=== PATIENT | female | born 1985 | race Caucasian/White ===

== ENCOUNTER 2016-11-22 12:11 | Emergency (ER) | payer BC ==
[2016-11-22 12:22] VITALS: RESP 16; TEMP 98.5
[2016-11-22] MEDS ORDERED: HYDROmorphone 1 MG/ML 1 ML SYRINGE IVP STA (12:31)
[2016-11-22] MEDS ORDERED: ONDANSETRON 4 MG/2 ML VIAL IVP STA ×2 (12:31→15:19)
[2016-11-22] MEDS ORDERED: SODIUM CHLORIDE 0.9% 1,000 ML IV STA ×2 (12:31)
--- NOTE | 2016-11-22 12:36 | ED ---
General Adult HPI - General Chief complaint: Abdominal Pain Stated complaint: appendicitis-sent by [employer] Time Seen by Provider: 11/22/16 12:25 Source: patient, RN notes reviewed Mode of arrival: ambulatory Limitations: no limitations - History of Present Illness Initial comments: 31-year-old female who presents emergency room today with a chief complaint of right-sided abdominal pain 3 days. Patient does admit to pain on the right side. She does admit that she's had kidney stone in the past. She states this feels somewhat similar but more intense. Patient states that she did go to urgent care and they saw evidence for blood in her urine and possible urinary tract infection. She states that she was advised coming here to the emergency room for further evaluation. Admits to the flank pain on the right side. She also admits to episodes of nausea vomiting. Denies any other complaints currently. Patient denies any recent fever, chills, shortness of breath, chest pain, numbness or tingling, dysuria or hematuria, constipation or diarrhea, headaches or visual changes, or any other complaints. - Related Data Home Medications Medication Instructions Recorded Confirmed Cetirizine HCl [Zyrtec] 10 mg PO DAILY 11/22/16 11/22/16 Propranolol [Inderal] 20 mg PO BID 11/22/16 11/22/16 Previous Rx's Medication Instructions Recorded Hydrocodone/Acetaminophen [[place] 1 each PO Q6HR PRN #20 tab 11/22/16 5-325] Ibuprofen [Motrin] 600 mg PO Q6HR PRN #40 day 11/22/16 Ondansetron Odt [Zofran ODT] 4 mg PO Q8HR PRN #20 tab 11/22/16 Tamsulosin [Flomax] 0.4 mg PO DAILY #10 cap 11/22/16 Allergies Allergy/AdvReac Type Severity Reaction Status Date / Time No Known Allergies Allergy Verified 11/22/16 12:35 Review of Systems ROS Statement: Those systems with pertinent positive or pertinent negative responses have been documented in the HPI. ROS Other: All systems not noted in ROS Statement are negative. Past Medical History Past Medical History: No Reported History History of Any Multi-Drug Resistant Organisms: None Reported Past Surgical History: Orthopedic Surgery Additional Past Surgical History / Comment(s): DandC, bilateral knees Past Psychological History: No Psychological Hx Reported Smoking Status: Former smoker Past Alcohol Use History: Rare Past Drug Use History: None Reported General Exam - General Exam Comments Initial Comments: General: The patient is awake and alert, in no distress, and does not appear acutely ill. Eye: Pupils are equal, round and reactive to light, extra-ocular movements are intact. No nystagmus. There is normal conjunctiva bilaterally. No signs of icterus. Ears, nose, mouth and throat: There are moist mucous membranes and no oral lesions. Neck: The neck is supple, there is no tenderness or JVD. Cardiovascular: There is a regular rate and rhythm. No murmur, rub or gallop is appreciated. Respiratory: Lungs are clear to auscultation, respirations are non-labored, breath sounds are equal. No wheezes, stridor, rales, or rhonchi. Gastrointestinal: Patient's abdomen. Normal bowel sounds. Abdomen soft on palpation. Patient does have tenderness right side of the abdomen right flank. No CVA tenderness. No guarding. No rebound tenderness. Musculoskeletal: Normal ROM, no tenderness. Strength 5/5. Sensation intact. Pulses equal bilaterally 2+. Neurological: A&O x 3. CN II-XII intact, There are no obvious motor or sensory deficits. Coordination appears grossly intact. Speech is normal. Skin: Skin is warm and dry and no rashes or lesions are noted. Psychiatric: Cooperative, appropriate mood & affect, normal judgment. Limitations: no limitations Course Vital Signs 11/22/16 12:18 Temperature 98.5 F Pulse Rate 73 Respiratory 16 Rate Blood Pressure 141/80 O2 Sat by Pulse 98 Oximetry Medical Decision Making - Medical Decision Making Reexamined at this time shows no signs of distress. She states feeling better after medications here the emergency room. Patient's labs been reviewed does show large amount of blood in her urinalysis. No sign of infection. Patient's CT does show evidence for right-sided kidney stone measuring 5.6 mm. There is evidence for Mucosal thickening involving the rectosigmoid junction. Was discussed with patient about following up PCP for further evaluation. So, I advised patient follow-up with urologist. Advised patient will return if any symptoms increase or worsen or for any concerns. - Lab Data Result diagrams: 11/22/16 13:05 11/22/16 13:05 Lab Results 11/22/16 11/22/16 11/22/16 Range/Units 13:05 13:05 13:05 WBC 10.1 (3.8-10.6) k/uL RBC 4.78 (3.80-5.40) m/uL Hgb 14.3 (11.4-16.0) gm/dL Hct 40.1 (34.0-46.0) % MCV 83.9 (80.0-100.0) fL MCH 29.8 (25.0-35.0) pg MCHC 35.5 (31.0-37.0) g/dL RDW 12.8 (11.5-15.5) % Plt Count 356 (150-450) k/uL Neutrophils % 62 % Lymphocytes % 26 % Monocytes % 7 % Eosinophils % 2 % Basophils % 1 % Neutrophils # 6.3 (1.3-7.7) k/uL Lymphocytes # 2.7 (1.0-4.8) k/uL Monocytes # 0.7 (0-1.0) k/uL Eosinophils # 0.2 (0-0.7) k/uL Basophils # 0.1 (0-0.2) k/uL Sodium 140 (137-145) mmol/L Potassium 4.2 (3.5-5.1) mmol/L Chloride 106 (98-107) mmol/L Carbon Dioxide 24 (22-30) mmol/L Anion Gap 10 mmol/L BUN 15 (7-17) mg/dL Creatinine 1.10 H (0.52-1.04) mg/dL Est GFR (MDRD) Af Amer >60 (>60 ml/min/1.73 sqM) Est GFR (MDRD) Non-Af 59 (>60 ml/min/1.73 sqM) Glucose 80 (74-99) mg/dL Plasma Lactic Acid [place] 0.9 (0.7-2.0) mmol/L Calcium 9.3 (8.4-10.2) mg/dL Total Bilirubin 0.7 (0.2-1.3) mg/dL AST 22 (14-36) U/L ALT 33 (9-52) U/L Alkaline Phosphatase 58 (38-126) U/L Total Protein 6.6 (6.3-8.2) g/dL Albumin 4.1 (3.5-5.0) g/dL Amylase 49 (30-110) U/L Lipase 33 (23-300) U/L Urine Color Urine Appearance (Clear) Urine pH (5.0-8.0) Ur Specific [place] (1.001-1.035) Urine Protein (Negative) Urine Glucose (UA) (Negative) Urine Ketones (Negative) Urine Blood (Negative) Urine Nitrite (Negative) Urine Bilirubin (Negative) Urine Urobilinogen (<2.0) mg/dL Ur Leukocyte Esterase (Negative) Urine RBC (0-5) /hpf Urine WBC (0-5) /hpf Ur Squamous Epith Cells (0-4) /hpf Urine Bacteria (None) /hpf Urine Mucus (None) /hpf Urine HCG, Qual (Not Detectd) 11/22/16 11/22/16 Range/Units 13:55 13:55 WBC (3.8-10.6) k/uL RBC (3.80-5.40) m/uL Hgb (11.4-16.0) gm/dL Hct (34.0-46.0) % MCV (80.0-100.0) fL MCH (25.0-35.0) pg MCHC (31.0-37.0) g/dL RDW (11.5-15.5) % Plt Count (150-450) k/uL Neutrophils % % Lymphocytes % % Monocytes % % Eosinophils % % Basophils % % Neutrophils # (1.3-7.7) k/uL Lymphocytes # (1.0-4.8) k/uL Monocytes # (0-1.0) k/uL Eosinophils # (0-0.7) k/uL Basophils # (0-0.2) k/uL Sodium (137-145) mmol/L Potassium (3.5-5.1) mmol/L Chloride (98-107) mmol/L Carbon Dioxide (22-30) mmol/L Anion Gap mmol/L BUN (7-17) mg/dL Creatinine (0.52-1.04) mg/dL Est GFR (MDRD) Af Amer (>60 ml/min/1.73 sqM) Est GFR (MDRD) Non-Af (>60 ml/min/1.73 sqM) Glucose (74-99) mg/dL Plasma Lactic Acid [place] (0.7-2.0) mmol/L Calcium (8.4-10.2) mg/dL Total Bilirubin (0.2-1.3) mg/dL AST (14-36) U/L ALT (9-52) U/L Alkaline Phosphatase (38-126) U/L Total Protein (6.3-8.2) g/dL Albumin (3.5-5.0) g/dL Amylase (30-110) U/L Lipase (23-300) U/L Urine Color Yellow Urine Appearance Cloudy H (Clear) Urine pH 5.5 (5.0-8.0) Ur Specific [place] 1.024 (1.001-1.035) Urine Protein 1+ H (Negative) Urine Glucose (UA) Negative (Negative) Urine Ketones 1+ H (Negative) Urine Blood Large H (Negative) Urine Nitrite Negative (Negative) Urine Bilirubin Negative (Negative) Urine Urobilinogen <2.0 (<2.0) mg/dL Ur Leukocyte Esterase Large H (Negative) Urine RBC >182 H (0-5) /hpf Urine WBC 5 (0-5) /hpf Ur Squamous Epith Cells 44 H (0-4) /hpf Urine Bacteria Few H (None) /hpf Urine Mucus Occasional H (None) /hpf Urine HCG, Qual Not Detected (Not Detectd) Disposition Clinical Impression: Kidney stone Disposition: HOME SELF-CARE Condition: Good Instructions: Kidney Stones (ED) Additional Instructions: Please use medication as discussed. Please follow-up with family doctor in the next 2 days of symptoms have not improved. Please return to emergency room if the symptoms increase or worsen or for any other concerns. Prescriptions: Hydrocodone/Acetaminophen [[place] 5-325] 1 each PO Q6HR PRN #20 tab PRN Reason: Pain Ibuprofen [Motrin] 600 mg PO Q6HR PRN #40 day PRN Reason: Pain Ondansetron Odt [Zofran ODT] 4 mg PO Q8HR PRN #20 tab PRN Reason: Nausea Tamsulosin [Flomax] 0.4 mg PO DAILY #10 cap Referrals: Nadia De Luna MD [Primary Care Provider] - 1-2 days Greg Rodriguez MD [STAFF PHYSICIAN] - 1-2 days Time of Disposition: 15:25
[2016-11-22 13:27] LABS: Basophils # (A) 0.1 k/uL (0-0.2); Basophils % (A) 1 %; CH 29.9; CHCM 35.8; Eosinophils # (A) 0.2 k/uL (0-0.7); Eosinophils % (A) 2 %; HCT 40.1 % (34.0-46.0); HDW 2.72; HGB 14.3 gm/dL (11.4-16.0); Luc # (Auto) 0.23; Luc % (Auto) 2; Lymphocytes # (A) 2.7 k/uL (1.0-4.8); Lymphocytes % (A) 26 %; MCH 29.8 pg (25.0-35.0); MCHC 35.5 g/dL (31.0-37.0); MCV 83.9 fL (80.0-100.0); Monocytes # (A) 0.7 k/uL (0-1.0); Monocytes % (A) 7 %; Neutrophils # (A) 6.3 k/uL (1.3-7.7); Neutrophils % (A) 62 %; RBC 4.78 m/uL (3.80-5.40); RDW 12.8 % (11.5-15.5); WBC 10.1 k/uL (3.8-10.6); WBC (Perox) 10.29
[2016-11-22 13:42] LABS: ALT 33 U/L (9-52); AST 22 U/L (14-36); Alkaline Phosphatase 58 U/L (38-126); Amylase 49 U/L (30-110); Anion Gap 10 mmol/L; Blood Urea Nitrogen 15 mg/dL (7-17); Calcium 9.3 mg/dL (8.4-10.2); Carbon Dioxide 24 mmol/L (22-30); Chloride 106 mmol/L (98-107); Glucose 80 mg/dL (74-99); Non-African American GFR(MDRD) 59 (>60 ml/min/1.73 sqM); Potassium 4.2 mmol/L (3.5-5.1); Sodium 140 mmol/L (137-145); Total Bilirubin 0.7 mg/dL (0.2-1.3); Total Protein 6.6 g/dL (6.3-8.2)
[2016-11-22 14:37] LABS: Appearance,Urine Cloudy (Clear); Bacteria,Urine Few /hpf; Bilirubin,Urine Negative (Negative); Glucose,Urine (UA) Negative (Negative); Ketones,Urine 1+ (Negative); Leukocyte Esterase,Urine Large (Negative); Mucus,Urine Occasional /hpf; Nitrite,Urine Negative (Negative); PH, Urine 5.5 (5.0-8.0); Particle Count 9654; Protein,Urine 1+ (Negative); RBC,Urine >182 /hpf (0-5); Specific Gravity,Urine 1.024 (1.001-1.035); Squamous Epithelial Cell,Urine 44 /hpf (0-4); UA Billing (MACRO vs. MICRO) MICRO; Urobilinogen,Urine <2.0 mg/dL (<2.0); WBC,Urine 5 /hpf (0-5)
--- NOTE | 2016-11-22 14:57 | XR ---
EXAMINATION TYPE: XR KUB DATE OF EXAM: 11/22/2016 2:52 PM CLINICAL HISTORY: Right lower quadrant pain with nausea and vomiting for 3 days. TECHNIQUE: Single supine KUB image of the abdomen is obtained. COMPARISON: None. FINDINGS: Some paucity of bowel gas is present. Visualized gas is noted in nondistended small and lar ge bowel loops. Punctate densities in bowel loops right lower quadrant could reflect product of [employer] food material. There is no visceromegaly or pneumoperitoneum appreciated. Single right-sided pelv ic phlebolith is noted. The lung bases are clear and the osseous structures are intact. IMPRESSION: Overall nonobstructive bowel gas pattern.
--- NOTE | 2016-11-22 15:15 | CT ---
EXAMINATION TYPE: CT abdomen pelvis wo con DATE OF EXAM: 11/22/2016 COMPARISON: NONE HISTORY: Rt sided pain CT DLP: 471.2 mGycm Automated exposure control for dose reduction was used. FINDINGS: There is atelectatic change at the lung bases. There is no pleural or pericardial fluid. Th e heart is not enlarged. Within the abdomen, the liver, spleen and gallbladder are normal. The adrenal glands are normal. The right kidney is normal. There is a 3.5 mm nonobstructing calculus in the posterior lower pole [place] yx of the right kidney. There are several smaller 2 to 3 mm calculi within the right kidney. There is moderate hydronephrosis on the right. There is a 5.6 mm calculus in the lower ureter several centime ters from the UVJ. The pancreas appears unremarkable. There is no significant retroperitoneal, iliac or inguinal adenopathy. The uterus is unremarkable. There is follicular change in both ovaries. The bladder is not distended. There is mild mucosal thickening involving the rectosigmoid junction. There is no significant diverti cular change and there is no radiographic evidence of diverticulitis. The appendix is normal. Small bowel loops are normal. There is a small umbilical hernia containing fat only with a 12 mm mouth. No free fluid and no free air is seen. No osseous lesion is seen. IMPRESSION: 1. RIGHT-SIDED NEPHROLITHIASIS. 2. 5.6 MM CALCULUS IN THE LOWER INFERIOR ON THE RIGHT CAUSING MILD TO MODERATE HYDRONEPHROSIS. 3. MUCOSAL THICKENING INVOLVING THE RECTOSIGMOID JUNCTION. PLEASE CORRELATE FOR COLITIS. 4. SMALL UMBILICAL HERNIA CONTAINING FAT ONLY WITH A 12 MM MOUTH.
[2016-11-22] MEDS ORDERED: KETOROLAC 30 MG/ML 1 ML VIAL IVP STA (15:19)
[2016-11-22 15:33] VITALS: BP 124/61; PULSE 60
== END 2016-11-22 15:56 | disposition home or self-care (01) ==
LOC: EC 12:11
DX: N20.0 Calculus of kidney (principal); Z87.891 Personal history of nicotine dependence; Z79.899 Other long term (current) drug therapy
CPT/HCPCS: 36415; 80053; 82150; 83605; 83690; 85025; 81001; 81025; 87086; 74000; 74176; 99284; 96374; 96375 ×2; 96376; 96361 ×3; J2405; J1885; J1170

== ENCOUNTER → 2016-12-11 | Outpatient (CLI) | payer BC ==
--- NOTE | 2016-12-11 09:16 | XR ---
Abdomen HISTORY: Renal calculus Frontal view of the abdomen submitted on 2 images and correlated to prior abdomen and CT abdomen 11/22 Calcification superimposed over the lower pole of the right kidney measures approximately 5 mm. Small er calcifications are suspected as noted on CT. Right hemipelvis calcification likely represents a ph lebolith. Lung bases not included on the exam. IMPRESSION: Right-sided nephrolithiasis.
== END ==
LOC: RADXRMAIN 06:59
PROVIDERS: ATTEND Urology
DX: N20.0 Calculus of kidney (principal)
CPT/HCPCS: 74000